=== PATIENT | male | born 1940 | race Caucasian/White ===

== ENCOUNTER → 2017-02-28 | Outpatient (CLI) | payer MEDICARE ==
[~2017-02-28] MED LIST: ACYCLOVIR800 MG PO; ADVAIR 250/501 EA INH; AMBIEN5 MG PO; ASPIRIN325 MG PO; ASPIRIN81 M1 PO; AVELOX400 MG PO; AVODART0.5 MG PO; BACTROBAN2% NAS; Bactroban Oint22 GM; CALTRATE 600 +1 TA1 PO; CALTRATE 600600 MG; CALTRATE 600600 MG PO; CENTRUM SILVER1 CTB PO; CIPRO500 MG PO; CIPROFLOXACIN500 MG PO; CLARITIN10 MG PO; COLACE100 MG PO; COZAAR100 MG PO; COZAAR25 MG; COZAAR50 MG PO; DAYPRO600 M1 PO; DELTASONE10 MG PO; DELTASONE5 MG PO; DILTIAZEM240 M2 PO; EPI EZ PEN1 MG/ML IM; FLOMAX0.4 MG PO; FOSAMAX70 MG PO; HYDR12.5C PO; HYDROCHLOROTHIA25 MG PO; HYDROCODONE BIT1 T11 PO; KLOR-CON M2020 MEQ PO; LOPRESSOR25 MG PO; LOSARTAN POTASS50 M1; MACROBID100 M1 PO; MEDROL DOSEPAK4 MG PO; MIRALAX17 GM/PACK PO; MOTRIN800 MG PO; MUCINEX600 MG PO; MYCOSTATIN100000 U/M PO; NORCO 10-325 T1 EACH PO; NORFLEX100 MG PO; OMNICEF300 MG PO; PANTOPRAZOLE SO40 MG PO; PANTOPRAZOLE40 M1 PO; PERCOCET 325 MG1 TA2 PO; PLAVIX75 MG PO; PREDNISONE PO; PREDNISONE5 MG PO; PRILOSEC40 MG PO; PROAIR HFA0.09 MG/AC; PROAIR HFA0.09 MG/AC IH; PROAIR HFA0.09 MG/AC INH; PROSCAR5 MG PO; PROTONIX40 MG PO; RESTORIL15 MG PO; ROBAXIN-750750 MG PO; ROBAXIN750 MG PO; SIMVASTATIN40 MG PO; SINGULAIR10 MG PO; SKELAXIN800 MG PO; SPIRIVA18 MCG IH; SPIRIVA18 MCG INH; SPORANOX100 MG PO; SYMBICORT1 AE1 IH; SYMBICORT1 AE1 INH; SYMBICORT1 AE1 PO; TAMSULOSIN HYD0.4 MG; TORADOL10 MG PO; VIBRAMYCIN100 MG PO; VICODIN ES 7501 TAB PO; VITAMIN D1000 IU PO; Vicodin 5/500 505 MG PO; ZITHROMAX250 MG PO; ZOCOR20 MG PO; [UNRECOGNIZED DRUG - REMARK]
== END | disposition home or self-care (01) ==
LOC: RAD 10:49
DX: M54.6 Pain in thoracic spine (principal); J44.9 Chronic obstructive pulmonary disease, unspecified; M43.8X2 Other specified deforming dorsopathies, cervical region; M54.9 Dorsalgia, unspecified; G89.29 Other chronic pain; Z85.118 Personal history of other malignant neoplasm of bronchus and lung

== ENCOUNTER 2018-04-15 16:51 | Emergency (ER) | payer OTHER, MEDICARE ==
[~2018-04-15] VITALS: Ht 187.9 cm; Wt 74.8 kg
[2018-04-15 18:14] VITALS: BP 127/91
== END 2018-04-15 19:20 | disposition home or self-care (01) ==
LOC: ED 16:51
DX: S00.81XA Abrasion of other part of head, initial encounter (principal); S60.512A Abrasion of left hand, initial encounter; Z90.89 Acquired absence of other organs; Z79.899 Other long term (current) drug therapy; Z88.1 Allergy status to other antibiotic agents; Z88.8 Allergy status to other drugs, medicaments and biological substances; Z79.82 Long term (current) use of aspirin; V49.88XA Car occupant (driver) (passenger) injured in other specified transport accidents, initial encounter; Y93.89 Activity, other specified; Y92.413 State road as the place of occurrence of the external cause; Y99.9 Unspecified external cause status